=== PATIENT | female | born 1985 | race African-American/Black ===

== ENCOUNTER 2024-04-30 11:39 | Emergency (ER) | payer OTHER ==
[~2024-04-30] VITALS: Ht 170.2 cm; Wt 76.0 kg
[2024-04-30 11:45] VITALS: BP 124/64; PULSE 67; RESP 16; TEMP 98.3; O2SAT 97
== END 2024-04-30 18:12 | disposition left against medical advice (07) ==
LOC: ER 12:23
DX: R05.9 Cough, unspecified (principal); Z53.21 Procedure and treatment not carried out due to patient leaving prior to being seen by health care provider